=== PATIENT | female | born 1970 | race Caucasian/White ===

== ENCOUNTER 2018-08-12 05:54 | Inpatient (IN) | payer BC ==
[2018-08-11 17:17] LABS: ADD MAN DIFF? NO
[2018-08-11 17:20] LABS: ABNORMAL IP MESSAGE 1; BASOPHIL # 0.1 10^3/ul (0.0-0.1); BASOPHILS % 1.4 % (0.0-2.0); EOSINOPHILS # 0.1 10^3/ul (0.0-0.5); EOSINOPHILS % 1.6 % (0.0-7.0); HEMATOCRIT 33.5 % (37.0-47.0); HEMOGLOBIN 9.9 g/dl (12.0-16.0); LYMPHOCYTES # 1.9 10^3/ul (0.8-2.9); MEAN CORPUSCULAR HEMOGLOBIN 21.8 pg (29.0-33.0); MEAN CORPUSCULAR HGB CONC 29.6 g/dl (32.0-37.0); MEAN CORPUSCULAR VOLUME 73.8 fl (82.0-101.0); MEAN PLATELET VOLUME 12.4 fl (7.4-10.4); MONOCYTE # 0.5 10^3/ul (0.3-0.9); MONOCYTES % 6.2 % (0.0-11.0); NEUTROPHIL # 5.4 10^3/ul (1.6-7.5); NEUTROPHILS % 66.6 % (39.0-77.0); PLATELET COUNT 380 10^3/UL (140-415); RED BLOOD COUNT 4.54 10^6/ul (4.20-5.40); RED CELL DISTRIBUTION WIDTH 24.1 % (11.5-14.5)
[2018-08-11 17:30] LABS: POSITIVE DIFF @See below
[2018-08-11 17:39] LABS: INR 0.99; PROTIME 13.2 Sec (11.9-14.9)
[2018-08-11 17:40] LABS: PARTIAL THROMBOPLASTIN TIME 30.2 Sec (23.0-35.0)
[2018-08-11 17:43] LABS: ALANINE AMINOTRANSFERASE 22 IU/L (13-69); ALBUMIN 4.2 g/dl (3.3-4.9); ALBUMIN/GLOBULIN RATIO 1.61; ALKALINE PHOSPHATASE 52 IU/L (42-121); ANION GAP 11 (5-13); ASPARTATE AMINO TRANSFERASE 27 IU/L (15-46); BILIRUBIN,INDIRECT 0.2 mg/dl (0-1.1); BILIRUBIN,TOTAL 0.2 mg/dl (0.2-1.3); BLOOD UREA NITROGEN 18 mg/dl (7-20); CALCIUM 9.3 mg/dl (8.4-10.2); CARBON DIOXIDE 23 mmol/L (21-31); CHLORIDE 103 mmol/L (97-110); CREATININE 0.55 mg/dl (0.44-1.00); Estimated GFR > 60 mL/min (>60); GLUCOSE 99 mg/dl (70-220); POTASSIUM 3.9 mmol/L (3.5-5.1); SODIUM 137 mmol/L (135-144); TOTAL PROTEIN 6.8 g/dl (6.1-8.1)
[2018-08-12] MEDS: ACETAMINOPHEN 500 MG TAB PO (06:00)
[2018-08-12] MEDS: SOD CHLORIDE 0.9% 1,000 ML IV ×2 (07:11→16:26)
[2018-08-12] MEDS: DEXAMETHASONE 4 MG/ML 1 ML INJ IV (07:14)
[2018-08-12] MEDS: ONDANSETRON 4 MG INJ IV (07:15)
[2018-08-12] MEDS: oxyCODONE (CR) 10 MG TAB [oxyCONTIN] PO (07:15)
[2018-08-12] MEDS: LANSOPRAZOLE 30 MG CAP PO (07:15)
[2018-08-12] MEDS: ACETAMINOPHEN 1000MG/100ML IV 100 ML IVPB (07:21)
[2018-08-12] MEDS: LACTATED RINGER'S 1,000 ML IV* (07:21)
[2018-08-12] MEDS ORDERED: MIDAZOLAM 1 MG/ML 2 ML INJ (07:29)
[2018-08-12] MEDS ORDERED: METOCLOPRAMIDE 10 MG INJ IV (07:30)
[2018-08-12] MEDS ORDERED: NA PHOSPHATE/BIPHOS 133 ML ENEMA PR (07:30)
[2018-08-12] MEDS ORDERED: HYDROmorphONE 1 MG/5 ML IV SYRINGE IV ×3 (07:30)
[2018-08-12] MEDS ORDERED: MAGNESIUM HYDROXIDE 30ML CUP PO (07:30)
[2018-08-12] MEDS ORDERED: oxyCODONE 5 MG TAB PO (07:30)
[2018-08-12] MEDS: DOCUSATE SODIUM 100 MG CAP PO (07:30)
[2018-08-12] MEDS ORDERED: FENTAnyl 50 MCG/ML VIAL IV ×2 (07:30)
[2018-08-12] MEDS ORDERED: ALBUTEROL 0.083% (NEB) 2.5 MG/3 ML AMP HHN (07:30)
[2018-08-12] MEDS ORDERED: SENNA/DOCUSATE NA (8.6MG/50MG) TAB PO (07:30)
[2018-08-12] MEDS ORDERED: ONDANSETRON 4 MG INJ IV (07:30)
[2018-08-12] MEDS ORDERED: BETHANECHOL 25 MG TAB PO (07:30)
[2018-08-12] MEDS ORDERED: morphine SULFATE/PF (10 MG/10 ML) INJ (07:30)
[2018-08-12] MEDS ORDERED: MEPERIDINE 25 MG INJ IV (07:30)
[2018-08-12] MEDS: ASPIRIN 81 MG TAB PO (07:30)
[2018-08-12] MEDS ORDERED: NACL 0.9% 3 ML SYG IV (07:30)
[2018-08-12] MEDS ORDERED: BISACODYL 10 MG SUPP PR (07:30)
[2018-08-12] MEDS ORDERED: NALOXONE (0.4 MG/ML) INJ IV (07:30)
[2018-08-12] MEDS ORDERED: CEFAZOLIN 2 GM/50 ML (PMX) 50 ML IVPB (07:30)
[2018-08-12] MEDS ORDERED: DIPHENHYDRAMINE 50 MG INJ IV (07:30)
[2018-08-12] MEDS ORDERED: PHENYLephrine (100 MCG/ML) 5ML SYG ×4 (07:41→09:54)
[2018-08-12] MEDS: CEFAZOLIN 1 GM/50 ML (PMX) 50 ML IVPB (07:55)
[2018-08-12] MEDS: HIP PAIN COCKTAIL (CEFUROXIME) INJ (08:05)
[2018-08-12] MEDS: TRANEXAMIC ACID 1,000 MG in NS 100 ML PRE-OP X1 IVPB (08:15)
[2018-08-12] MEDS: POLYMYXIN B 500000 UNIT INJ (08:32)
[2018-08-12] MEDS: BACITRACIN 50000 UNITS INJ (08:32)
[2018-08-12] MEDS: GABAPENTIN 100 MG CAP PO ×3 (09:00→21:45)
[2018-08-12] MEDS: TRANEXAMIC ACID 1,000 MG in NS 100 ML INTRA-OP X1 IVPB (09:15)
[2018-08-12] MEDS ORDERED: PROPOFOL 20 ML (09:50)
[2018-08-12] MEDS ORDERED: SUCCINYLCHOLINE CHLORIDE 100 MG/5 ML SYG IV (09:50)
[2018-08-12] MEDS ORDERED: LIDOCAINE 100 MG SYRINGE (09:50)
[2018-08-12] MEDS ORDERED: NEOSTIGMINE 3 MG/3 ML SYRINGE (09:50)
[2018-08-12] MEDS ORDERED: ROCURONIUM 50 MG INJ (09:50)
[2018-08-12] MEDS ORDERED: EPHEDrine SULFATE 50 MG/5 ML SYG (11:21)
[2018-08-12] MEDS: EPHEDrine SULFATE 50 MG/5 ML SYG IV (11:39)
[2018-08-12] MEDS: DIPHENHYDRAMINE 50 MG INJ IV (12:34)
[2018-08-12] MEDS: oxyCODONE 5 MG TAB PO (16:25)
[2018-08-12] MEDS: CEFAZOLIN 2 GM/50 ML (PMX) 50 ML IVPB ×2 (16:26→23:47)
[2018-08-13 05:19] LABS: ADD MAN DIFF? NO
[2018-08-13 05:24] LABS: ABNORMAL IP MESSAGE 1; BASOPHILS % 0.2 % (0.0-2.0); EOSINOPHILS # 0.1 10^3/ul (0.0-0.5); EOSINOPHILS % 0.6 % (0.0-7.0); LYMPHOCYTES # 1.7 10^3/ul (0.8-2.9); LYMPHOCYTES % 13.2 % (15.0-51.0); MEAN CORPUSCULAR HEMOGLOBIN 22.2 pg (29.0-33.0); MEAN CORPUSCULAR HGB CONC 29.1 g/dl (32.0-37.0); MEAN CORPUSCULAR VOLUME 76.2 fl (82.0-101.0); MEAN PLATELET VOLUME 12.7 fl (7.4-10.4); MONOCYTES % 7.6 % (0.0-11.0); NEUTROPHIL # 9.8 10^3/ul (1.6-7.5); NEUTROPHILS % 77.9 % (39.0-77.0); PLATELET COUNT 273 10^3/UL (140-415); RED BLOOD COUNT 3.02 10^6/ul (4.20-5.40); RED CELL DISTRIBUTION WIDTH 24.5 % (11.5-14.5)
[2018-08-13 05:24] LABS: WHITE BLOOD COUNT 12.6 10^3/ul (4.8-10.8)
[2018-08-13] MEDS: SOD CHLORIDE 0.9% 1,000 ML IV (05:27)
[2018-08-13 05:29] LABS: HEMOGLOBIN 6.7 g/dl (12.0-16.0); POSITIVE DIFF @See below
[2018-08-13 05:44] LABS: INR 1.17; PROTIME 15.1 Sec (11.9-14.9); PT RATIO 1.2
[2018-08-13 05:47] LABS: ANION GAP 6 (5-13); BLOOD UREA NITROGEN 6 mg/dl (7-20); CALCIUM 7.7 mg/dl (8.4-10.2); CARBON DIOXIDE 24 mmol/L (21-31); CHLORIDE 109 mmol/L (97-110); CREATININE 0.53 mg/dl (0.44-1.00); Estimated GFR > 60 mL/min (>60); GLUCOSE 94 mg/dl (70-220); POTASSIUM 3.7 mmol/L (3.5-5.1); SODIUM 139 mmol/L (135-144)
[2018-08-13] MEDS: PANTOPRAZOLE (EC) 40 MG TAB PO (05:48)
[2018-08-13] MEDS ORDERED: ONDANSETRON 4 MG INJ IV (07:30)
[2018-08-13] MEDS: CEFAZOLIN 2 GM/50 ML (PMX) 50 ML IVPB (08:30)
[2018-08-13] MEDS: GABAPENTIN 100 MG CAP PO ×3 (08:31→21:04)
[2018-08-13] MEDS: ASPIRIN (EC) 81 MG TAB PO ×2 (08:31→21:04)
[2018-08-13] MEDS: DOCUSATE SODIUM 100 MG CAP PO ×2 (08:31→21:05)
[2018-08-13] MEDS: oxyCODONE 5 MG TAB PO ×2 (08:41→15:53)
[2018-08-13] MEDS: CELECOXIB 100 MG CAP PO ×3 (09:00→21:05)
[2018-08-13 12:22] LABS: ADD MAN DIFF? NO
[2018-08-13 12:34] LABS: ABNORMAL IP MESSAGE 1; BASOPHILS % 0.4 % (0.0-2.0); EOSINOPHILS # 0.1 10^3/ul (0.0-0.5); EOSINOPHILS % 0.6 % (0.0-7.0); HEMATOCRIT 24.7 % (37.0-47.0); HEMOGLOBIN 7.2 g/dl (12.0-16.0); LYMPHOCYTES # 1.9 10^3/ul (0.8-2.9); LYMPHOCYTES % 18.5 % (15.0-51.0); MEAN CORPUSCULAR HEMOGLOBIN 22.4 pg (29.0-33.0); MEAN CORPUSCULAR HGB CONC 29.1 g/dl (32.0-37.0); MEAN CORPUSCULAR VOLUME 76.9 fl (82.0-101.0); MEAN PLATELET VOLUME 12.5 fl (7.4-10.4); MONOCYTE # 0.8 10^3/ul (0.3-0.9); MONOCYTES % 7.8 % (0.0-11.0); NEUTROPHIL # 7.4 10^3/ul (1.6-7.5); NEUTROPHILS % 72.2 % (39.0-77.0); PLATELET COUNT 265 10^3/UL (140-415); RED BLOOD COUNT 3.21 10^6/ul (4.20-5.40)
[2018-08-13 12:34] LABS: WHITE BLOOD COUNT 10.3 10^3/ul (4.8-10.8)
[2018-08-13 12:37] LABS: POSITIVE DIFF @See below
[2018-08-14] MEDS: oxyCODONE 5 MG TAB PO ×2 (04:18→12:31)
[2018-08-14 05:30] LABS: ADD MAN DIFF? NO
[2018-08-14 05:37] LABS: ABNORMAL IP MESSAGE 1; BASOPHILS % 0.4 % (0.0-2.0); EOSINOPHILS # 0.1 10^3/ul (0.0-0.5); EOSINOPHILS % 1.3 % (0.0-7.0); LYMPHOCYTES # 1.9 10^3/ul (0.8-2.9); MEAN CORPUSCULAR HEMOGLOBIN 22.2 pg (29.0-33.0); MEAN CORPUSCULAR HGB CONC 29.2 g/dl (32.0-37.0); MEAN CORPUSCULAR VOLUME 75.9 fl (82.0-101.0); MONOCYTE # 0.7 10^3/ul (0.3-0.9); MONOCYTES % 7.7 % (0.0-11.0); NEUTROPHIL # 6.6 10^3/ul (1.6-7.5); NEUTROPHILS % 70.3 % (39.0-77.0); PLATELET COUNT 250 10^3/UL (140-415); RED BLOOD COUNT 3.16 10^6/ul (4.20-5.40); RED CELL DISTRIBUTION WIDTH 25.2 % (11.5-14.5)
[2018-08-14 05:37] LABS: WHITE BLOOD COUNT 9.5 10^3/ul (4.8-10.8)
[2018-08-14 05:39] LABS: POSITIVE DIFF @See below
[2018-08-14 05:54] LABS: INR 1.13; PROTIME 14.7 Sec (11.9-14.9); PT RATIO 1.1
[2018-08-14] MEDS: PANTOPRAZOLE (EC) 40 MG TAB PO (06:00)
[2018-08-14 06:10] LABS: ANION GAP 7 (5-13); BLOOD UREA NITROGEN 4 mg/dl (7-20); CALCIUM 7.9 mg/dl (8.4-10.2); CARBON DIOXIDE 26 mmol/L (21-31); CHLORIDE 106 mmol/L (97-110); CREATININE 0.53 mg/dl (0.44-1.00); Estimated GFR > 60 mL/min (>60); GLUCOSE 91 mg/dl (70-220); POTASSIUM 3.5 mmol/L (3.5-5.1); SODIUM 139 mmol/L (135-144)
[2018-08-14] MEDS: ASPIRIN (EC) 81 MG TAB PO (09:13)
[2018-08-14] MEDS: GABAPENTIN 100 MG CAP PO ×2 (09:13→12:25)
[2018-08-14] MEDS: CELECOXIB 100 MG CAP PO (09:13)
[2018-08-14] MEDS: DOCUSATE SODIUM 100 MG CAP PO (09:13)
[2018-08-14] MEDS: FERROUS SULFATE (EC) 325 MG TAB PO (12:24)
== END 2018-08-14 16:35 | DRG 470 ==
LOC: REC 05:54 → MS1 12:27
PROC: 0SR904A Replacement of Right Hip Joint with Ceramic on Polyethylene Synthetic Substitute, Uncemented, Open Approach (ICD-10-PCS; principal; 2018-08-12 07:30)
DX: M16.11 Unilateral primary osteoarthritis, right hip (principal); D64.9 Anemia, unspecified
CPT/HCPCS: 72170; 73500; 73530; 80048; 80053; 85025; 85610; 85730; 86850; 86900; 86901; 86920; 88304; 88311; 97110; 97116; 97161; 97167; 97530; 97535